=== PATIENT | male | born 1930 | race Caucasian/White ===

== ENCOUNTER 2016-09-05 01:24 | Emergency (ER) | payer MEDICARE ==
[~2016-09-05 01:24] MED LIST: AMARYL2 MG PO; CILOSTAZOL100 M1 PO; FLO4 PO; GABAPENTIN100 M2 PO; LOPRESSOR100 MG PO; METFORMIN HCL500 MG PO; OMEPRAZOLE DR20 M1 PO; RANITIDINE HCL150 M1 PO; SIMVASTATIN20 M1 PO; VITAMIN B
[2016-09-05 03:04] LABS: BASOPHIL % 0.1 % (0-2); PLATELET COUNT 253 x10^3mcL (130-400); RED CELL DISTRIBUTION WIDTH 13.6 % (11.5-14.5)
[2016-09-05 03:09] LABS: CALCIUM 8.2 mg/dL (8.5-10.1); CARBON DIOXIDE 27.4 mmol/L (21-32); CHLORIDE SERUM 108 mmol/L (98-107); CREATININE SERUM 1.4 mg/dL (0.7-1.3); GLUCOSE SERUM 168 mg/dL (74-106); POTASSIUM SERUM 4.3 mmol/L (3.5-5.1); SODIUM SERUM 142 mmol/L (136-145)
[2016-09-05 03:20] LABS: ALBUMIN 3.6 g/dL (3.4-5.0); ALKALINE PHOSPHATASE 49 U/L (46-116); ALT/SGPT 25 U/L (16-63); AMYLASE 48 U/L (25-115); AST/SGOT 19 U/L (15-37); BILIRUBIN TOTAL 0.4 mg/dL (0.20-1.00); LIPASE 106 IU/L (73-393); TOTAL PROTEIN, SERUM 6.6 g/dL (6.4-8.2)
[2016-09-05 04:51] VITALS: BP 126/58
== END 2016-09-05 04:51 | disposition home or self-care (01) ==
LOC: ED 01:24
PROVIDERS: Emergency Medicine
DX: R19.7 Diarrhea, unspecified (principal); R11.10 Vomiting, unspecified; R10.9 Unspecified abdominal pain; E11.9 Type 2 diabetes mellitus without complications; I10 Essential (primary) hypertension
CPT/HCPCS: J7030

== ENCOUNTER 2017-07-06 09:45 | Emergency (ER) | payer MEDICARE ==
[~2017-07-06] VITALS: Ht 167.6 cm; Wt 76.7 kg
[2017-07-06 10:09] VITALS: Ht 167.6 cm; Wt 76.7 kg
[2017-07-06 11:28] LABS: BASOPHIL % 0.3 % (0-2); PLATELET COUNT 257 x10^3mcL (130-400); RED CELL DISTRIBUTION WIDTH 13.3 % (11.5-14.5)
[2017-07-06 11:52] LABS: CALCIUM 8.8 mg/dL (8.5-10.1); CARBON DIOXIDE 24.1 mmol/L (21-32); CHLORIDE SERUM 102 mmol/L (98-107); CREATININE SERUM 1.2 mg/dL (0.7-1.3); GLUCOSE SERUM 228 mg/dL (74-106); SODIUM SERUM 138 mmol/L (136-145)
[2017-07-06 11:56] LABS: ALBUMIN 3.5 g/dL (3.4-5.0); ALKALINE PHOSPHATASE 44 U/L (46-116); ALT/SGPT 26 U/L (16-63); AST/SGOT 20 U/L (15-37); BILIRUBIN TOTAL 0.53 mg/dL (0.20-1.00); LIPASE 100 IU/L (73-393)
[2017-07-06 13:57] LABS: microscopic required? NO
[2017-07-06 19:46] VITALS: BP 137/81
[2017-07-06 19:53] LABS: urine erythrocyte NEGATIVE (NEGATIVE)
== END 2017-07-06 14:25 | disposition home or self-care (01) ==
LOC: ED 09:45
PROVIDERS: Emergency Medicine
DX: K57.90 Diverticulosis of intestine, part unspecified, without perforation or abscess without bleeding (principal); I10 Essential (primary) hypertension; E11.9 Type 2 diabetes mellitus without complications
CPT/HCPCS: 83880; J2270; J2405; J7040

== ENCOUNTER 2018-02-04 02:53 | Inpatient (IN) | payer MEDICARE ==
[~2018-02-04] VITALS: Ht 162.6 cm; Wt 75.5 kg
[2018-02-04 03:05] VITALS: Ht 162.6 cm; Wt 75.5 kg
[2018-02-04 04:01] LABS: CALCIUM 8.7 mg/dL (8.5-10.1); CARBON DIOXIDE 25.2 mmol/L (21-32); CHLORIDE SERUM 107 mmol/L (98-107); CREATININE SERUM 1.3 mg/dL (0.7-1.3); GLUCOSE SERUM 162 mg/dL (74-106); POTASSIUM SERUM 3.9 mmol/L (3.5-5.1); SODIUM SERUM 142 mmol/L (136-145)
[2018-02-04 04:04] LABS: UA SPECIFIC GRAVITY >=1.030 (1.005-1.035); microscopic required? YES; urine erythrocyte NEGATIVE (NEGATIVE)
[2018-02-04 04:07] LABS: ALBUMIN 3.5 g/dL (3.4-5.0); ALKALINE PHOSPHATASE 50 U/L (46-116); ALT/SGPT 27 U/L (16-63); AST/SGOT 19 U/L (15-37); BILIRUBIN TOTAL 0.4 mg/dL (0.20-1.00); LIPASE 117 IU/L (73-393); TOTAL PROTEIN, SERUM 7.1 g/dL (6.4-8.2)
[2018-02-04 04:24] LABS: PLATELET COUNT 271 x10^3mcL (130-400); RED CELL DISTRIBUTION WIDTH 13.4 % (11.5-14.5)
[2018-02-04 04:25] LABS: BASOPHIL % 0.5 % (0-2)
[2018-02-04] MEDS ORDERED: FENOFIBRATE54 M1 (05:16)
[2018-02-04 07:48] VITALS: BP 129/70
[2018-02-04 08:17] VITALS: BP 129/70
[2018-02-04 12:52] VITALS: BP 128/80
[2018-02-04 18:24] VITALS: BP 139/86
[2018-02-04 20:38] VITALS: BP 155/80
[2018-02-05 05:20] VITALS: BP 153/80
[2018-02-05 09:41] VITALS: BP 150/80
[2018-02-05 11:50] VITALS: BP 143/71
== END 2018-02-05 12:26 | disposition home or self-care (01) | DRG 392 ==
LOC: ED 02:53 → DU 05:04 → MU 05:04 → DU 07:46
PROVIDERS: Emergency Medicine; Internal Medicine Gastroenterology
PROC: 0DJD8ZZ Inspection of Lower Intestinal Tract, Via Natural or Artificial Opening Endoscopic (ICD-10-PCS; principal; 2018-02-05 08:30)
DX: K52.9 Noninfective gastroenteritis and colitis, unspecified (principal); K57.90 Diverticulosis of intestine, part unspecified, without perforation or abscess without bleeding; K59.00 Constipation, unspecified; K64.8 Other hemorrhoids; I12.9 Hypertensive chronic kidney disease with stage 1 through stage 4 chronic kidney disease, or unspecified chronic kidney disease; E11.22 Type 2 diabetes mellitus with diabetic chronic kidney disease; N18.3 Chronic kidney disease, stage 3 (moderate); N28.1 Cyst of kidney, acquired; Z95.0 Presence of cardiac pacemaker; Z79.84 Long term (current) use of oral hypoglycemic drugs
CPT/HCPCS: 45378; 82962; 83880; J1200; J1610; J1650; J2250; J2270; J2310; J2405; J2765; J3010; J3490; Q0092